=== PATIENT | male | born 1940 | race Hispanic/Latino ===

== ENCOUNTER 2020-10-12 06:40 | Day surgery (SDC) | payer MEDICARE ==
[2020-10-12] MEDS ORDERED: ASPIRIN EC 325 MG TAB PO ONE (06:56)
[2020-10-12] MEDS ORDERED: SODIUM CHLORIDE 0.9% 500 ML 500 ML IV SCH (07:00)
[2020-10-12 07:31] LABS: Basophils % (Auto) 0.4 % (0.0-1.8); Eosinophils # (Auto) 0.1 K/mm3 (0.0-0.4); Eosinophils % (Auto) 1.8 % (0.0-4.3); Hematocrit 38.6 % (35.5-45.6); Hemoglobin 13.1 gm/dl (11.8-15.2); Lymphocytes # (Auto) 1.2 K/mm3 (1.2-5.4); Lymphocytes % (Auto) 27.1 % (13.4-35.0); Mean Corpuscular HGB Conc 34 % (32-34); Mean Corpuscular Volume 90 fl (84-94); Monocytes # (Auto) 0.3 K/mm3 (0.0-0.8); Monocytes % (Auto) 7.5 % (0.0-7.3); Platelet Count 200 K/mm3 (140-440); Red Cell Distribution Width 13.9 % (13.2-15.2)
[2020-10-12 07:41] LABS: INR 1.03 (0.87-1.13)
[2020-10-12 07:42] LABS: Partial Thromboplastin Time 24.1 Sec. (24.2-36.6)
[2020-10-12 07:44] LABS: BUN/Creatinine Ratio 19; Blood Urea Nitrogen 19 mg/dL (9-20); Calcium 9.4 mg/dL (8.4-10.2); Hemolysis Index 9
[2020-10-12] MEDS ORDERED: HEPARIN/NS 5000 UNIT/500ML 1,000 ML IR ONE (08:14)
[2020-10-12] MEDS ORDERED: fentaNYL 100 MCG/2 ML INJ ONE (08:14)
[2020-10-12] MEDS ORDERED: VERAPAMIL 5 MG/2 ML INJ ONE (08:14)
[2020-10-12] MEDS ORDERED: MIDAZOLAM 2 MG/2 ML INJ ONE (08:14)
[2020-10-12] MEDS ORDERED: NITROGLYCERIN SYRINGE 3 ML ONE (08:15)
[2020-10-12] MEDS ORDERED: LIDOCAINE (2%) 20 MG/1 ML VIAL 20 ML MDV INFILTRATI ONE (08:15)
[2020-10-12] MEDS ORDERED: NITROGLYCERIN 600 MCG/3 ML SYRINGE ART-SHEATH ONE (09:13)
[2020-10-12] MEDS: HEPARIN 10,000 UNITS/10 ML VIAL ONE ×2 (09:13→09:22)
--- NOTE | 2020-10-12 10:14 | Cardiac Catherization Report ---
REFERRING PHYSICIAN: Dr. Mercedes and Dr. Ender Frederick. INDICATION FOR PROCEDURE: The patient is a very pleasant 80-year-old gentleman found to have severe aortic stenosis, referred here for left heart catheterization. Risks, benefits and alternatives discussed prior to obtaining informed consent. PROCEDURE IN DETAIL: The patient brought to the laboratory specialist in a postabsorptive state, prepped and draped in sterile fashion. Gabe's test in right hand was normal. A 2 mL of 2% lidocaine used to anesthetize the right wrist. A standard 6-Moroc[place] hydrophilic sheath used to cannulate the right radial artery via modified Seldinger technique. All exchanges performed to exchange a J-tip guidewire. JL3.5 catheter used to engage the left main. No dampening or ventricularization. Cineangiography performed in multiple projections. Multiple wires and catheters were used to try to cross the aortic valve and were unsuccessful. Additional heparin was given. Next a no torque right catheter used to engage for nonselective right coronary angiography in multiple projections. Next, a 6-[place]oc[place] pigtail catheter was used for aortogram in the KAUSHAL projection via power injector. Next, catheter removed from the body and manual pressure used to achieve hemostasis. DATA: Aortic pressure is 130/70. The patient remained in normal sinus rhythm throughout the procedure. No LV as we were unable to cross the aortic valve. CORONARY ANATOMY: This is a right dominant system. Left main is short, no significant disease, bifurcates into left anterior descending and left circumflex. Left circumflex, moderate sized vessel, courses AV groove. No significant disease. LAD is a moderate sized vessel, courses anterior intraventricular groove. Scattered luminal irregularities, but no obstructive disease identified in the LAD or diagonal system. Right coronary is a moderate sized vessel, courses AV groove, distally bifurcates into the posterior descending and posterolateral branches. No discrete stenoses noted. Root aortography reveals normal contour, no evidence of dissection, penetrating aortic ulcer. 1+ aortic insufficiency is noted and heavily calcified aortic valve. I directly supervised the administration of moderate sedation with fentanyl and Versed from 9:11 a.m. to 9:40 a.m. No immediate complications identified. CONCLUSIONS: 1. Known critical aortic stenosis, unable to cross valve. 2. No angiographic evidence of significant epicardial coronary disease in this right dominant system. 3. Aortic root without evidence of dissection, penetrating the ulcer with 1+ aortic insufficiency. The patient is clinically stable, chest pain free. Standard radial care. The patient has a scheduled elective aortic valve replacement with Dr. Ender Frederick at [facility]. Results of procedure were also discussed with via telephone. Followup with Dr. Mercedes and Dr. Frederick. JOB# [id number] SBM/NTS
--- NOTE | 2020-10-12 12:35 | Short Stay Summary ---
Short Stay Documentation Date of service: 10/12/20 - History H&P: obtained from office - Allergies and Medications Current Medications: Allergies plague vaccine Allergy (Verified 10/12/20 07:05) Rash Home Medications Medication Instructions Recorded Confirmed Last Taken Type Acetaminophen [Tylenol] 2 tab PO HS 10/12/20 10/12/20 10/11/20 History 2 tabs Aspirin EC [Halfprin EC] 81 mg PO DAILY 10/12/20 10/12/20 10/11/20 History 81 mg Cholestyramine [Cholestyramine 25 gm PO DAILY 10/12/20 10/12/20 10/11/20 History Resin] 25 gm Ezetimibe [Zetia] 10 mg PO HS 10/12/20 10/12/20 10/11/20 History 10 mg Fenofibrate 54 mg PO DAILY 10/12/20 10/12/20 10/11/20 History 54 mg Gluc Moreno/Miranda-3/Vitamin E 2 tab PO QAM 10/12/20 10/12/20 10/11/20 History [Glucosamine-Fish Oil Softgel] 2 tabs Losartan [Cozaar] 100 mg PO DAILY 10/12/20 10/12/20 10/11/20 History 100 mg Magnesium 250 mg PO DAILY 10/12/20 10/12/20 10/11/20 History 250 mg Metformin HCl [Glucophage Xr] 500 mg PO BID 10/12/20 10/12/20 10/11/20 History 500 mg Mv-Mn/Iron/FA/Vit K/Chol/Coq10 1 tab PO DAILY 10/12/20 10/12/20 10/11/20 History [Advanced Multi Ea Chew Tablet] 1 tab Miranda 3,6,9 Combination No.7 1 tab PO HS 10/12/20 10/12/20 10/11/20 History [Miranda Dha] 1 tab Omeprazole 20 mg PO DAILY 10/12/20 10/12/20 10/11/20 History 20 mg Saw [place] 450 mg PO DAILY 10/12/20 10/12/20 10/11/20 History 1 tab Vit B Comp C 19/Folic Acid/D3 1 tab PO DAILY 10/12/20 10/12/20 10/11/20 History [Nephronex-Sl Tablet] 1 tab Vit D3-Vit K/[place]/Hops 1 tab PO DAILY 10/12/20 10/12/20 10/11/20 History [Ostera Tablet] 1 tab amLODIPine 5 mg PO DAILY 10/12/20 10/12/20 10/11/20 History 5 mg Active Medications Sodium Chloride (Nacl 0.9% 500 Ml) 500 mls @ 50 mls/hr IV DIRECT EJ Stop: 10/12/20 16:59 Last Admin: 10/12/20 07:53 Dose: 50 mls/hr Documented by: - Brief post op/procedure progress note Date of procedure: 10/12/20 Pre-op diagnosis: SOB, Abd Stress Test Post-op diagnosis: other (Normal Coronary Arteries) Anesthesia: local Estimated blood loss: none Condition: stable - Disposition Disposition: DC-01 TO HOME OR SELFCARE - Discharge Diagnoses (1) Normal coronary arteries Status: Chronic Short Stay Discharge Plan Activity: advance as tolerated Diet: low fat, low cholesterol, low salt Wound: open to air, keep clean and dry, per your surgeon's advice Follow up with: DONTRELL PARTIDA MD [Primary Care Provider] - 7 Days Forms: CardCath PCI D/C Instructions
[2020-10-12 13:51] VITALS: BP 139/52
--- NOTE | 2020-10-14 09:32 | Electrocardiograph Report ---
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
== END 2020-10-12 14:28 | disposition home or self-care (01) ==
LOC: CATHLABREC 06:40
PROVIDERS: ATTEND Internal Medicine
DX: I35.0 Nonrheumatic aortic (valve) stenosis (principal); Z88.8 Allergy status to other drugs, medicaments and biological substances; Z79.899 Other long term (current) drug therapy; Z79.84 Long term (current) use of oral hypoglycemic drugs; Z79.82 Long term (current) use of aspirin; Z87.891 Personal history of nicotine dependence; E78.00 Pure hypercholesterolemia, unspecified; I10 Essential (primary) hypertension; Z87.442 Personal history of urinary calculi; M19.90 Unspecified osteoarthritis, unspecified site; Z98.890 Other specified postprocedural states; Z80.8 Family history of malignant neoplasm of other organs or systems; Z82.49 Family history of ischemic heart disease and other diseases of the circulatory system
CPT/HCPCS: 36415; 80048; 85025; 85610; 85730; 93005; 93454; 93567; 99156; 99157; C1894; J1644; J2250; J3010; J7040; 93458; Q9967